=== PATIENT | male | born 1950 | race Caucasian/White ===

== ENCOUNTER 2023-03-19 11:32 | Day surgery (SDC) | payer MEDICARE, OTHER ==
[2023-03-18 10:39] LABS: Basophils # (auto) 0.1 10 ^3/uL (0-0.2); Eosinophils # (auto) 0.3 10 ^3/uL (0-0.8); Hemoglobin 7.9 g/dL (13.5-17.5); Mean Corpuscular Hemoglobin 22.7 pg (28.0-32.0); Neutrophils # (auto) 4.9 10 ^3/uL (1.6-8.6); Red Blood Cells 3.48 10^6/uL (4.5-5.90); White Blood Cell 8.1 10^3/uL (4.4-10.8)
[2023-03-18 10:41] LABS: Basophils % (auto) 0.9 % (0.0-2.0); Eosinophils % (auto) 3.3 % (0.0-7.0); Hematocrit 25.7 % (41.0-53.0); Lymphocytes % (auto) 24.9 % (10.0-50.0); Mean Corpuscular Hgb Conc. 30.7 g/dL (32.0-36.0); Monocytes # (auto) 0.9 10 ^3/uL (0-1.3); Neutrophils % (auto) 59.9 % (37.0-80.0); Nucleated Red Blood Cells % 0.1 %
[2023-03-18 10:55] LABS: INR 1.08 (0.9-1.15); Partial Thromboplastin Time 28.4 sec (24.6-33.4)
[2023-03-18 11:18] LABS: Albumin 3.8 g/dL (3.4-5.0); Calcium 8.5 mg/dL (8.5-10.1); Potassium 4.5 mmol/L (3.5-5.1)
[2023-03-18 11:21] LABS: BUN/Creatinine Ratio 23.7 (10.0-20.0); Bilirubin, Total 0.4 mg/dL (0.2-1.0); Total Protein 7.7 g/dL (6.4-8.2)
[2023-03-18 13:13] LABS: Urine Bacteria NONE SEEN /hpf (None Seen); Urine Blood Negative /uL (Negative); Urine Specific Gravity 1.011 (1.001-1.035); Urine WBC 1 /hpf (0 - 3)
[~2023-03-19] VITALS: Ht 182.9 cm; Wt 104.3 kg
[~2023-03-19 11:32] MED LIST: APIX5TAB PO; ATOR10TA PO; BRIM0.2S2 OP; GABA-1308 PO; LISI20TA56 PO; MET25T PO; TAMS-35 PO
[2023-03-19] MEDS ORDERED: fentaNYL CITRATE 100 MCG/2 ML VL ONE (12:37)
[2023-03-19] MEDS ORDERED: MIDAZOLAM HCL 2MG/2ML 2ml VIAL (1mg/ml) ONE (12:37)
[2023-03-19] MEDS ORDERED: LIDOCAINE 2% (LOCAL ANESTH.) PF 5ml SDV ONE (12:46)
[2023-03-19] MEDS ORDERED: ONDANSETRON HCL 4 MG/2 ML VIAL ONE (12:46)
[2023-03-19] MEDS ORDERED: ONDANSETRON HCL 4 MG/2 ML VIAL IV PRN (13:00)
[2023-03-19] MEDS ORDERED: PROPOFOL 10 MG/ML 20 ML IV ONE (13:03)
[2023-03-19 13:35] VITALS: BP 149/72
== END 2023-03-19 14:47 | disposition home or self-care (01) ==
LOC: GI 11:32
PROVIDERS: ATTEND Internal Medicine Gastroenterology
DX: K92.1 Melena (principal); R10.30 Lower abdominal pain, unspecified; K57.30 Diverticulosis of large intestine without perforation or abscess without bleeding; K64.8 Other hemorrhoids; K29.50 Unspecified chronic gastritis without bleeding
CPT/HCPCS: 36415; 43239; 45380; 80053; 81001; 82962; 85025; 85610; 85730; 88305; 88342; J2001; J2250; J2405; J2704; J3010; J7030

== ENCOUNTER 2024-05-24 08:45 | Day surgery (SDC) | payer MEDICARE, OTHER ==
[2024-05-19 09:56] LABS: INR 1.18 (0.9-1.15); Partial Thromboplastin Time 32.2 SEC (24.5-34.5); Prothrombin Time 12.4 sec (9.3-11.8)
[2024-05-19 09:57] LABS: Basophils # (auto) 0 10 ^3/uL (0-0.2); Basophils % (auto) 0.5 % (0.0-2.0); Eosinophils # (auto) 0.2 10 ^3/uL (0-0.8); Eosinophils % (auto) 1.9 % (0.0-7.0); Hematocrit 44.7 % (41.0-53.0); Hemoglobin 15.1 g/dL (13.5-17.5); Lymphocytes # (auto) 1.9 10 ^3/uL (0.4-5.4); Mean Corpuscular Hemoglobin 31.3 pg (28.0-32.0); Mean Corpuscular Hgb Conc. 33.7 g/dL (32.0-36.0); Mean Corpuscular Volume 92.8 fL (80.0-100.0); Monocytes # (auto) 0.8 10 ^3/uL (0-1.3); Monocytes % (auto) 9.6 % (0.0-12.0); Neutrophils # (auto) 5.1 10 ^3/uL (1.6-8.6); Nucleated Red Blood Cells % 0.2 %; Platelet Count (auto) 204 10^3/uL (140-450); Red Blood Cells 4.82 10^6/uL (4.5-5.90); Red Cell Distribution Width 14.1 % (11.8-14.3)
[2024-05-19 10:27] LABS: Alanine Aminotransferase 16 U/L (7-40); Albumin 4.4 g/dL (3.2-4.8); Alkaline Phosphatase 99 U/L (46-116); Anion Gap 7 (5-15); Aspartate Aminotransferase 9 U/L (13-40); BUN/Creatinine Ratio 13.3 (10.0-20.0); Bilirubin, Total 0.9 mg/dL (0.2-1.0); Blood Urea Nitrogen 15 mg/dL (9-23); Calcium 9.7 mg/dL (8.7-10.4); Carbon Dioxide 26 mmol/L (20-30); Chloride 107 mmol/L (98-107); Glucose 99 mg/dL (74-106); Potassium 3.9 mmol/L (3.5-5.1); Sodium 140 mmol/L (136-145); Total Protein 7.2 g/dL (5.7-8.2)
[2024-05-19 13:03] LABS: Urine Bacteria None Seen /hpf (None Seen)
[2024-05-19 13:15] LABS: Urine Blood Negative /uL (Negative); Urine Clarity Clear (Clear); Urine Color Light-Yellow (Yellow); Urine Protein, UAD Negative (Negative); Urine Specific Gravity 1.026 (1.001-1.035); Urine Urobilinogen Normal (Negative); Urine WBC <1 /hpf (0 - 3)
[~2024-05-24] VITALS: Ht 182.9 cm; Wt 111.1 kg
[~2024-05-24 08:45] MED LIST changes: +AMLO1TAB23 PO; +ASPI1TAB20 PO; -ATOR10TA PO; +ATOR20TA50 PO; +EMPA1TAB PO; +FER325T PO; -GABA-1308 PO; +GABA300T4 PO; +INSUINJ37 SC; +MULT-688 PO
[2024-05-24 10:34] VITALS: TEMP 98.1
[2024-05-24] MEDS ORDERED: HYDROmorphone HCL 2 MG/ML VL/or syr IV PRN (10:45)
[2024-05-24] MEDS ORDERED: ONDANSETRON HCL 4 MG/2 ML VIAL IV ONE (10:45)
[2024-05-24 11:24] VITALS: BP 122/60; PULSE 51; RESP 14; O2SAT 95
== END 2024-05-24 11:24 | disposition home or self-care (01) ==
LOC: GI 08:45
PROVIDERS: ATTEND Internal Medicine Gastroenterology
DX: Z08 Encounter for follow-up examination after completed treatment for malignant neoplasm (principal); D12.2 Benign neoplasm of ascending colon; D12.3 Benign neoplasm of transverse colon; C18.9 Malignant neoplasm of colon, unspecified; K64.8 Other hemorrhoids; K63.89 Other specified diseases of intestine; E11.9 Type 2 diabetes mellitus without complications; I10 Essential (primary) hypertension; E78.5 Hyperlipidemia, unspecified; I48.91 Unspecified atrial fibrillation; N40.0 Benign prostatic hyperplasia without lower urinary tract symptoms; Z98.0 Intestinal bypass and anastomosis status; Z98.890 Other specified postprocedural states
CPT/HCPCS: 36415; 45380; 45385; 80053; 81001; 85025; 85610; 85730; 88305; J7030; J2001; J2250; J2704